=== PATIENT | male | born 2005 | race African-American/Black ===

== ENCOUNTER 2025-04-27 12:36 | Emergency (ER) | payer MEDICAID, SELFPAY ==
--- NOTE | ~2025-04-27 | XR_ITS ---
CLINICAL HISTORY: injury, lateral pain Three views of the left ankle. COMPARISON: None provided. FINDINGS: Lateral left ankle soft tissue swelling. No ankle joint effusion. Ankle mortise appears symmetric on non-stressed views. Talar dome appears intact. Distal tibia and fibula appear intact. Visualized tarsal bones appear intact. IMPRESSION: 1. Lateral left ankle soft tissue swelling. This document has been electronically signed by: Albert Pratt MD on 04/27/2025 13:05:47
[2025-04-27 12:40] VITALS: BP 133/61; PULSE 99; RESP 17; TEMP 36.8; O2SAT 98; BMI 26.1
--- NOTE | 2025-04-27 12:40 | ED.LOWEXIN ---
HPI - Extremity Injury (Lower) General Chief Complaint: Extremity Injury, Lower Stated Complaint: L Leg injury soccor Time Seen by Provider: 04/27/25 13:43 Source: patient Mode of arrival: wheelchair Limitations: language barrier History of Present Illness ED Provider: murali ochoa np HPI Narrative: Patient is a 20 year old male primarily [place]ymra[place] Creole speaking who presents emergency department for evaluation of localized pain to the left lateral malleolus after twisting injury playing soccer yesterday. Denies prior injury. No numbness tingling or cold sensation to the foot. No associated head injury loss of consciousness or use of anticoagulants Related Data Allergies Allergy/AdvReac Type Severity Reaction Status Date / Time No Known Allergies Allergy Verified 04/27/25 12:42 Review of Systems Review of Systems: Yes all other systems are reviewed and are negative FOR[facility]LY [facility] Past Medical History Attestation statement: The following information was validated with the patient. Source: old records reviewed Social History Social History Do you have a plan to hurt others: No Plan Physical Exam Exam: Exam: Appearance: Alert.?Oriented to person, place and time. No acute distress.?Normal affect. CVS: Heart sounds normal. Normal heart rate and rhythm.? Pulses normal.?? Respiratory: No respiratory distress.? Lung sounds clear to auscultation bilaterally?? Skin: Skin warm and dry.? Normal skin color.? Extremities: Localized swelling and tenderness to the left lateral malleolus. No erythema. No obvious deformity. 2+ DP/PT pulse.? No calf ttp? Neuro: Moves all extremities spontaneously. Sensation intact bilaterally. Ambulates with antalgic gait. Vital Signs: Vital Signs: Last Vital Signs Temp 98.2 F 04/27/25 12:40 Pulse 99 04/27/25 12:40 Resp 17 04/27/25 12:40 BP 133/61 04/27/25 12:40 Pulse Ox 98 04/27/25 12:40 O2 Del Method Room Air 04/27/25 12:40 BMI result Body Mass Index 26.1 Medical Decision Making Medical Decision Making [facility] Narrative: Patient is a 20-year-old male who presents emergency department for evaluation of traumatic left ankle pain as per HPI, pain localized to the lateral malleolus consistent with sprain at this time, XR imaging was obtained and there was no evidence of acute fracture dislocation. Extremity is neurovascularly intact distally. No pain posteriorly, no palpable defects to the Achilles tendon. Is able to dorsiflex and plantar flex though slightly decreased. Reviewed conservative treatment, placed in an Aircast and provided with crutches, outpatient follow-up with PCP. Given anticipated healing time of ankle sprains general and with the most severe. Differential Diagnosis Differential Diagnoses: The differential diagnosis associated with the presentation includes (See narrative above) Independent Interpretation I performed an independent interpretation of an: Plain X-Ray (See narrative above) Radiology Impression Discussion of test interpretation with radiology: I have reviewed the radiologist's reading. Radiologist Impression: Three views of the left ankle. COMPARISON: None provided. FINDINGS: Lateral left ankle soft tissue swelling. No ankle joint effusion. Ankle mortise appears symmetric on non-stressed views. Talar dome appears intact. Distal tibia and fibula appear intact. Visualized tarsal bones appear intact. IMPRESSION: 1. Lateral left ankle soft tissue swelling. Prescription Management I considered prescription management with: Pain Medication Discharge Plan Discharge Clinical Impression: Ankle sprain Qualifiers: Encounter type: initial encounter Laterality: left Patient Disposition: Home, Self-Care Instructions: Ankle Sprain (ED), Crutch Instructions (ED), P.R.I.C.E. Treatment (ED) Additional Instructions: You can take ibuprofen 200 mg, 3 tablets (600mg) every 6-8 hours as needed for pain, in addition to Tylenol 500 mg, 2 tablets (1,000mg) every 4-6 hours as needed for pain, but not to exceed 3 doses daily (3,000mg).? Apply ice for 10-15 minutes 4-6 times daily. Use the Aircast has provided in addition to crutches to take we of the ankle until your symptoms are improving. Follow-up with your primary care doctor. You may return with any new or worsening symptoms or concerns. Referrals: Physician,None [Primary Care Provider, Medical] Print Language: Cym[place] Creole
[2025-04-27 14:11] VITALS: BP 133/61; PULSE 99; RESP 17; TEMP 36.8; O2SAT 98
== END 2025-04-27 14:18 | disposition home or self-care (01) ==
PROVIDERS: Emergency Provider Emergency Medicine
DX: S93.402A Sprain of unspecified ligament of left ankle, initial encounter (principal); M79.605 Pain in left leg; X50.1XXA Overexertion from prolonged static or awkward postures, initial encounter; Y93.66 Activity, soccer; Y92.9 Unspecified place or not applicable; Y99.9 Unspecified external cause status
CPT/HCPCS: 73610; 99282; 99283

== ENCOUNTER → 2025-04-27 12:42 | Outpatient (BNV) | payer MEDICAID, SELFPAY | PROVIDERS: Visit Provider Radiology Diagnostic Radiology | DX: R22.42 Localized swelling, mass and lump, left lower limb (principal) | CPT/HCPCS: 73610 ==